=== PATIENT | male | born 1965 | race Caucasian/White ===

== ENCOUNTER → 2017-09-03 | Outpatient (CLI) | payer OTHER ==
[~2017-09-03] MED LIST: None per pt
== END | disposition home or self-care (01) ==
LOC: STAR 11:53
PROVIDERS: ATTEND Orthopaedic Surgery
DX: Z01.818 Encounter for other preprocedural examination (principal); M16.12 Unilateral primary osteoarthritis, left hip
CPT/HCPCS: 36415; 80053; 81003; 85025; 87081; 93005

== ENCOUNTER 2020-05-22 10:37 | Inpatient (IN) | payer MEDICAID ==
[~2020-05-22] VITALS: Ht 180.3 cm; Wt 95.9 kg
[~2020-05-22 10:37] MED LIST changes: +EPINEPHRINE 1 MG/ML, 1ML ONE; +ROPIvacaine/PF 0.5%, 20 ML ONE; +ROPIvacaine/PF 0.5%, 30 ML ONE; +SODIUM CHLORIDE 0.9% 100 ML ONE; +TRANEXAMIC ACID 100 MG/ML, 10ML ONE; +VANCOMYCIN 1,000 MG ONE
[2020-05-22] MEDS ORDERED: LACTATED RINGERS 1,000 ML IV SCH (11:30)
[2020-05-22] MEDS ORDERED: GABAPENTIN 300 MG CAPSULE PO ONE (11:30)
[2020-05-22] MEDS ORDERED: ACETAMINOPHEN 500 MG TABLET PO ONE (11:30)
[2020-05-22] MEDS ORDERED: KETOROLAC 60 MG/2 ML ONE (11:33)
[2020-05-22] MEDS ORDERED: CHLORHEXIDINE 15 ML UDC ONE (11:38)
[2020-05-22] MEDS ORDERED: VANCOMYCIN PER PHARMACY MC STA (11:47)
[2020-05-22] MEDS ORDERED: PLEASE ENTER HEIGHT AND WEIGHT MC SCH (12:00)
[2020-05-22] MEDS: LACTATED RINGERS 1,000 ML IV SCH ×2 (12:00→12:33)
[2020-05-22 12:07] VITALS: BP 124/82
[2020-05-22] MEDS ORDERED: MIDAZOLAM 1 MG/ML, 2ML ONE (12:14)
[2020-05-22] MEDS ORDERED: FENTANYL PF 250 MCG/5ML ONE (12:15)
[2020-05-22] MEDS ORDERED: NO HOME MEDS PER PT (12:15)
[2020-05-22 12:24] LABS: BASOPHILS % (AUTO) 1 % (0-1); EOSINOPHILS % (AUTO) 1 % (1-7); LYMPHOCYTES % (AUTO) 25 % (22-44); MEAN CORPUSCULAR HEMOGLOBIN 30.5 pg (27.5-34.5); MEAN PLATELET VOLUME 8.9 fL (7.4-10.4); MONOCYTES % (AUTO) 7 % (2-9); NEUTROPHILS % (AUTO) 66 % (42-75); PLATELET COUNT 323 x10^3/uL (130-400); RED BLOOD COUNT 5.28 x10^6/uL (4.38-5.82); RED CELL DISTRIBUTION WIDTH 14.5 % (9.4-14.8)
[2020-05-22 12:26] LABS: MD NO
[2020-05-22] MEDS ORDERED: VANCOMYCIN 1,900 MG in SODIUM CHLORIDE 0.9% 250 ML IV ONE (12:30)
[2020-05-22] MEDS ORDERED: CHLORHEXIDINE 15 ML UDC MM ONE (12:30)
[2020-05-22 12:36] LABS: INTERNATIONAL NORMALIZED RATIO 1.04 (0.93-1.1); PROTHROMBIN TIME 11.1 Seconds (9.6-11.5)
[2020-05-22 12:37] LABS: ANION GAP 6 mmol/L (5-15); CALCIUM 9.5 mg/dL (8.5-10.1); CHLORIDE 112 mmol/L (98-107); CREATININE 0.89 mg/dL (0.7-1.3)
[2020-05-22] MEDS ORDERED: MEPERIDINE/PF 25MG/0.5ML IVPush PRN (13:00)
[2020-05-22] MEDS ORDERED: morphine SULFATE 10 MG/ML, 1ML IVPush PRN (13:00)
[2020-05-22] MEDS ORDERED: LABETALOL 5MG/ML, 20ML IV PRN (13:00)
[2020-05-22] MEDS ORDERED: ONDANSETRON 2MG/ML, 2ML IVPush PRN (13:00)
[2020-05-22] MEDS ORDERED: hydrALAzine 20 MG/ML, 1ML IV PRN (13:00)
[2020-05-22] MEDS ORDERED: OXYcodone 5 MG/5 ML ORAL.SOL UDC PO PRN (13:00)
[2020-05-22] MEDS ORDERED: BISACODYL 10 MG SUPP PR PRN (14:00)
[2020-05-22] MEDS ORDERED: SENNA/DOCUSATE TABLET PO PRN (14:00)
[2020-05-22] MEDS ORDERED: ZOLPIDEM 5MG TABLET PO PRN (14:00)
[2020-05-22] MEDS ORDERED: MAGNESIUM HYDROXIDE 8%, 30ML UDC PO PRN (14:00)
[2020-05-22] MEDS ORDERED: DIPHENHYDRAMINE 50 MG CAPSULE PO PRN (14:00)
[2020-05-22] MEDS ORDERED: PROPOFOL 10 MG/ML, 20ML ONE (14:27)
[2020-05-22] MEDS ORDERED: ROCURONIUM 10MG/ML,5ML ONE (14:27)
[2020-05-22] MEDS ORDERED: NEOSTIGMINE 1 MG/ML, 10ML ONE (14:27)
[2020-05-22] MEDS ORDERED: CEFAZOLIN 1,000 MG ONE (14:27)
[2020-05-22] MEDS ORDERED: GLYCOPYRROLATE 0.2MG/1ML, 5ML ONE (14:27)
[2020-05-22] MEDS ORDERED: FENTANYL PF 100 MCG/2ML ONE (14:50)
[2020-05-22] MEDS ORDERED: HYDROmorphone 2 MG/ML, 1ML ONE (14:51)
[2020-05-22] MEDS: FENTANYL PF 100 MCG/2ML IV PRN ×2 (14:52→15:05)
[2020-05-22] MEDS: HYDROmorphone 1 MG/ML, 1ML INJ IVPush PRN ×4 (14:58→15:25)
[2020-05-22] MEDS ORDERED: OXYcodone 5 MG/5 ML ORAL.SOL UDC ONE (15:08)
[2020-05-22] MEDS ORDERED: MEPERIDINE/PF 25MG/ML,1ML ONE (15:21)
[2020-05-22 16:10] VITALS: BP 117/85
[2020-05-22] MEDS: NS + 20MEQ KCL 1,000 ML IV SCH (16:51)
[2020-05-22] MEDS: ASPIRIN 81 MG TABLET EC PO SCH (16:51)
[2020-05-22 19:01] VITALS: BP 107/58
[2020-05-22] MEDS: DOCUSATE 100 MG CAPSULE PO SCH (21:10)
[2020-05-22] MEDS: CEFAZOLIN PMX 2GM/50ML 50 ML IVPB SCH (22:32)
[2020-05-23] MEDS ORDERED: ONDANSETRON 2MG/ML, 2ML IVPush PRN
[2020-05-23] MEDS ORDERED: ONDANSETRON ODT 4 MG PO PRN
[2020-05-23 00:07] VITALS: BP 106/68
[2020-05-23] MEDS: ACETAMINOPHEN 650 MG/20.3 ML UDC PO PRN ×2 (01:03→05:25)
[2020-05-23] MEDS: OXYcodone IR 5MG TABLET PO PRN ×2 (01:03→05:25)
[2020-05-23] MEDS: HYDROmorphone 1 MG/ML, 1ML INJ IV PRN ×4 (03:43→13:44)
[2020-05-23 04:40] VITALS: BP 106/63
[2020-05-23] MEDS: NS + 20MEQ KCL 1,000 ML IV SCH (04:49)
[2020-05-23] MEDS: ASPIRIN 81 MG TABLET EC PO SCH (05:24)
[2020-05-23] MEDS ORDERED: DEXAMETHASONE 4 MG/ML, 1ML IVPush SCH (06:00)
[2020-05-23] MEDS: CEFAZOLIN PMX 2GM/50ML 50 ML IVPB SCH (08:06)
[2020-05-23] MEDS: DOCUSATE 100 MG CAPSULE PO SCH (08:29)
[2020-05-23] MEDS ORDERED: OXYC5CAP2 PO (11:15)
[2020-05-23] MEDS ORDERED: MELO7.5T31 PO (11:16)
[2020-05-23] MEDS ORDERED: TRAM50TA2 PO (11:16)
[2020-05-23] MEDS ORDERED: ONDA4TAB7 PO (12:10)
== END 2020-05-23 14:58 | disposition home or self-care (01) | DRG 470 ==
LOC: OUT 10:37 → ORIP 13:35 → 4NE 16:18 → DCLOUNGE 05-23 14:51
PROVIDERS: ADMIT Orthopaedic Surgery; ATTEND Orthopaedic Surgery
PROC: 0SR90JZ Replacement of Right Hip Joint with Synthetic Substitute, Open Approach (ICD-10-PCS; principal; 2020-05-22 12:45)
DX: M16.11 Unilateral primary osteoarthritis, right hip (principal); Z20.822 Contact with and (suspected) exposure to COVID-19
CPT/HCPCS: 36415; 72170; 76000; 80048; 83036; 85014; 85018; 85025; 85610; 85730; 87081; 87147; 87635; 93005; C1713; G0378; J0171; J0690; J1170; J1885; J2250; J2405; J2704; J2710; J2795; J3010; J3370; J3480; C1776; J7050; J7120